=== PATIENT | female | born 1965 | race Asian ===

== ENCOUNTER → 2024-09-06 | Day surgery (SDC) | payer MEDICARE, MEDICAID ==
[~2024-09-06] MED LIST: ALBU18HF2 IH; CEPH500C2 MT; CYCL5TAB3 MT; LIDO700A15 TP; MUPI1OIN4 TP; NAPR-1176 MT; NAPR-681 PO; NITR0.4T49 SL; NYST15PO13 TP; ONDA4TAB50 MT; REGADENOSON 0.4 MG/5 ML IV ONE; SULF1TAB48 MT
== END | disposition home or self-care (01) ==
LOC: NM 08:22 → MERGE 13:56
PROVIDERS: ATTEND Internal Medicine
DX: Z01.810 Encounter for preprocedural cardiovascular examination (principal); I51.7 Cardiomegaly; I49.1 Atrial premature depolarization; R06.00 Dyspnea, unspecified
CPT/HCPCS: 93306; 93017; 78452; J2785; A9500

== ENCOUNTER → 2024-09-21 | Outpatient (CLI) | payer MEDICARE, MEDICAID ==
[~2024-09-21] MED LIST changes: -REGADENOSON 0.4 MG/5 ML IV ONE
== END | disposition home or self-care (01) ==
LOC: CT 09:21
PROVIDERS: ATTEND Internal Medicine Critical Care Medicine
DX: J84.10 Pulmonary fibrosis, unspecified (principal); R91.1 Solitary pulmonary nodule; M47.814 Spondylosis without myelopathy or radiculopathy, thoracic region
CPT/HCPCS: 71250